=== PATIENT | female | born 1985 | race American Indian/Alaskan Native ===

== ENCOUNTER 2016-08-17 12:39 | Emergency (ER) | payer SELFPAY ==
--- NOTE | 2016-08-17 16:40 | Emergency Department Report ---
- General Chief Complaint: Skin/Abscess/Foreign Body Stated Complaint: PREV SURGERY INCISION OPENING/DRAINAGE Time Seen by Provider: 08/17/16 16:35 Source: patient Mode of arrival: Ambulatory Limitations: No Limitations - History of Present Illness Initial Comments: Patient is a 31 year old female who presents to the ED for some drainage from right sided pelvic area where had had previous . Relates that she is currently about 16 weeks as well and sees Dr. Mckay for it. Denies any other symptoms. Onset/Timin -: Sudden, days(s) Location: other (right pelvic ) Place: home Associated Symptoms: none. denies: pain, loss of feeling/numbness, suspect foreign body present, unable to move injured part - Related Data Previous Rx's Medication Instructions Recorded Last Taken Type Cephalexin [Keflex] 500 mg PO Q8HR #30 cap 08/17/16 Unknown Rx Allergies Allergy/AdvReac Type Severity Reaction Status Date / Time No Known Allergies Allergy Unverified 08/17/16 13:38 ED Review of Systems ROS: Stated complaint: PREV SURGERY INCISION OPENING/DRAINAGE Other details as noted in HPI Constitutional: denies: chills, fever Eyes: denies: eye pain, eye discharge, vision change Respiratory: denies: cough, shortness of breath, wheezing Cardiovascular: denies: chest pain, palpitations Skin: as per HPI, other (infection at the site of previous . ) Neurological: denies: headache, weakness, paresthesias Psychiatric: denies: anxiety, depression ED Past Medical Hx - Past Medical History Previous Medical History?: No - Surgical History Additional Surgical History: - Social History Smoking Status: Never Smoker Substance Use Type: None - Medications Home Medications: Home Medications Medication Instructions Recorded Confirmed Last Taken Type Cephalexin [Keflex] 500 mg PO Q8HR #30 cap 08/17/16 Unknown Rx ED Physical Exam - General Limitations: No Limitations General appearance: alert, in no apparent distress - Head Head exam: Present: atraumatic, normocephalic - Respiratory Respiratory exam: Present: normal lung sounds bilaterally. Absent: respiratory distress, wheezes, rales - Cardiovascular Cardiovascular Exam: Present: regular rate, normal rhythm. Absent: systolic murmur, diastolic murmur, rubs, gallop - Neurological Exam Neurological exam: Present: alert, oriented X3 - Psychiatric Psychiatric exam: Present: normal affect, normal mood - Skin Skin exam: Present: warm, dry, intact, normal color, other (scant drainage noted to the site of previous C-sction in the right pelvic area. No swelling, erythema or tenderness to touch). Absent: rash ED Course Vital Signs 08/17/16 13:38 Temperature 98.3 F Pulse Rate 76 Respiratory 16 Rate Blood Pressure 99/68 O2 Sat by Pulse 100 Oximetry ED Medical Decision Making - Medical Decision Making Patient is resting comfortably. Scant drainage noted at the previous C section site. Will start patient on Keflex for now. Advised follow upw tih Dr. Mckay to ensure infection resolves. Advised to return to ED for worsening symptoms. - Differential Diagnosis cellulitis, skin infection, abscess, scar infection Critical care attestation.: If time is entered above; I have spent that time in minutes in the direct care of this critically ill patient, excluding procedure time. ED Disposition Clinical Impression: Skin infection Disposition: DISCHARGED TO HOME OR SELFCARE Is pt being admited?: No Does the pt Need Aspirin: No Condition: Stable Instructions: Cellulitis (ED), Abscess (ED), Acute Wound Care (ED) Prescriptions: Cephalexin [Keflex] 500 mg PO Q8HR #30 cap Referrals: PRIMARY CARE, [Primary Care Provider] - 3-5 Days Time of Disposition: 16:45
[2016-08-17 17:00] VITALS: BP 100/61
== END 2016-08-17 16:59 | disposition home or self-care (01) ==
LOC: ED 12:39
DX: L08.89 Other specified local infections of the skin and subcutaneous tissue (principal)
CPT/HCPCS: 99282

== ENCOUNTER 2017-01-25 09:40 | Inpatient (IN) | payer OTHER ==
[2017-01-25] MEDS ORDERED: LACTATED RINGERS 1,000 ML ONE (10:25)
[2017-01-25] MEDS: LACTATED RINGERS 1,000 ML IV SCH ×2 (10:35→11:20)
[2017-01-25] MEDS ORDERED: ANCEF/STERILE WATER 2 GM/20 ML 2 GM/20 ML SYRINGE IV NR (11:00)
[2017-01-25] MEDS ORDERED: BICITRA PO NR (11:00)
[2017-01-25] MEDS ORDERED: REGLAN IV NR (11:00)
[2017-01-25] MEDS ORDERED: PEPCID IV NR (11:00)
[2017-01-25] MEDS ORDERED: PITOCin/NS 20 UNIT/1000ML DRIP 20 UNITS/1,000 ML BAG IV SCH ×2 (11:00→17:00)
[2017-01-25 11:05] LABS: Basophils % (Auto) 0.3 % (0.0-1.8); Eosinophils % (Auto) 1.9 % (0.0-4.3); Hematocrit 33.8 % (30.3-42.9); Hemoglobin 11.4 gm/dl (10.1-14.3); Mean Corpuscular HGB Conc 34 % (30-34); Mean Corpuscular Hemoglobin 32 pg (28-32); Mean Corpuscular Volume 96 fl (79-97); Platelet Count 152 K/mm3 (140-440); Red Blood Count 3.53 M/mm3 (3.65-5.03); Red Cell Distribution Width 14.1 % (13.2-15.2); White Blood Count 6.5 K/mm3 (4.5-11.0)
--- NOTE | 2017-01-25 11:32 | History and Physical Report ---
History of Present Illness Date of examination: 01/25/17 Date of admission: 01/25/17 09:40 Chief complaint: Here for third repeat History of present illness: 32-year-old 002 at 39 weeks presents for 3rd repeat , she is [facility] patient. course complicated by presentation from [place]. Her 2 prior C-sections were in [place]. Most recently seen in the emergency room (here on 07/2016) for infection at her C -section scar on the right Past History Past Medical History: no pertinent history Past Surgical History: section (# 2 (last in 2012 in [place])) [employer] History: denies: chlamydia, gonorrhea, hepatitis B, hepatitis C, herpes, HIV , syphilis, trichomonas Social history: single, full code. denies: smoking, alcohol abuse, prescription drug abuse, IV drug use - Obstetrical History Expected Date of Delivery: 02/01/17 Actual Gestation: 39 Week(s) 0 Day(s) : 3 Para: 2 Medications and Allergies Allergies Allergy/AdvReac Type Severity Reaction Status Date / Time No Known Allergies Allergy Unverified 08/17/16 13:38 Home Medications Medication Instructions Recorded Confirmed Last Taken Type Cephalexin [Keflex] 500 mg PO Q8HR #30 cap 08/17/16 Unknown Rx Active Meds: Active Medications Citric Acid/Sodium Citrate (Bicitra) 30 ml PO ONCE NR Stop: 01/25/17 18:00 Famotidine (Pepcid) 20 mg IV ONCE NR Stop: 01/25/17 18:00 Cefazolin Sodium (Ancef/Sterile Water 2 Gm/20 Ml) 2 gm in 20 mls @ 80 mls/hr IV PREOP NR PRN Reason: Protocol Stop: 01/25/17 18:00 Lactated Ringer's (Lactated Ringers) 1,000 mls @ 2,250 mls/hr IV PREOP SUSAN Stop: 01/26/17 11:27 Last Admin: 01/25/17 11:20 Dose: 2,250 mls/hr Oxytocin/Sodium Chloride (Pitocin/Ns 20 Unit/1000ml Drip) 20 units in 1,000 mls @ 0 mls/hr IV TITR SUSAN PRN Reason: As Directed Metoclopramide HCl (Reglan) 10 mg IV ONCE NR Stop: 01/25/17 18:00 Review of Systems Constitutional: no fever, no chills, no sweats, no fatigue, no weakness Cardiovascular: no chest pain, no orthopnea, no palpitations, no syncope, no lightheadedness, no shortness of breath, no dyspnea on exertion, no high blood pressure Respiratory: no cough, no excessive sputum, no shortness of breath, no dyspnea on exertion Gastrointestinal: no abdominal pain, no nausea, no vomiting Genitourinary: no vaginal bleeding, no vaginal discharge, no leakage of fluid, no pelvic pain - Vital Signs Vital signs: Vital Signs Pulse BP 86 105/73 01/25/17 10:29 01/25/17 10:29 Temp Pulse Resp BP Pulse Ox 97.6 F 90 18 107/67 01/25/17 10:42 01/25/17 11:09 01/25/17 10:42 01/25/17 11:09 - Physical Exam Cardiovascular: Regular rate, Normal S1, Normal S2 Lungs: Positive: Clear to auscultation, Normal air movement Abdomen: Positive: normal appearance, soft. Negative: distention, tenderness, guarding, rigidity Genitourinary (Female): Positive: normal external genitalia Uterus: Positive: enlarged (EFW ~ 3500). Negative: tender Extremities: Positive: normal Results Result Diagrams: 01/25/17 10:31 Abnormal lab results 01/25/17 Range/Units 10:31 RBC 3.53 L (3.65-5.03) M/mm3 Seg Neutrophils % 72.5 H (40.0-70.0) % All other labs normal. Assessment and Plan A: 32-year-old 002 at 39 weeks presents for a third repeat -Cat 1 tracing P: -Reviewed risks of surgery. She understands that her risk is increased due to her prior 2 C-sections. -She signed consent -Proceed to the OR once available - Patient Problems (1) 39 weeks gestation of Current Visit: Yes Status: Acute (2) History of 2 sections Current Visit: Yes Status: Acute
[2017-01-25] MEDS ORDERED: DILAUDID IV PRN (12:18)
[2017-01-25] MEDS ORDERED: BENADRYL IV PRN (12:18)
[2017-01-25] MEDS ORDERED: NARCAN 0.4 MG/1 ML IV PRN ×2 (12:18→16:09)
[2017-01-25] MEDS ORDERED: ZOFRAN IV PRN (12:18)
--- NOTE | 2017-01-25 12:18 | Anesthesia Day of Surgery ---
Anesthesia Day of Surgery - Day of Surgery Patient Examined: Yes Patient H&P Reviewed: Yes Patient is NPO: Yes
--- NOTE | 2017-01-25 12:18 | Anesthesia Consultation ---
Anesthesia Consult and Med Hx Date of service: 01/25/17 - Airway Anesthetic Teeth Evaluation: Good ROM Head & Neck: Adequate Mental/Hyoid Distance: Adequate Mallampati Class: Class II Intubation Access Assessment: Probably Good - Pre-Operative Health Status ASA Pre-Surgery Classification: ASA2 Proposed Anesthetic Plan: Epidural, Spinal - Pulmonary Hx Asthma: No COPD: No Hx Pneumonia: No - Cardiovascular System Hx Hypertension: No - Central Nervous System Hx Seizures: No Hx Psychiatric Problems: No - Endocrine Hx Renal Disease: No Hx End Stage Renal Disease: No Hx Hypothyroidism: No Hx Hyperthyroidism: No - Hematic Hx Anemia: Yes Hx Sickle Cell Disease: No - Other Systems Hx Alcohol Use: No
[2017-01-25] MEDS ORDERED: SODIUM CHLORIDE FLUSH SYRINGE 10 ML IV NR ×2 (13:00→17:00)
[2017-01-25] MEDS ORDERED: MORPHINE ONE (14:15)
[2017-01-25] MEDS ORDERED: NACL 0.9% 1000 ML 1,000 ML ONE (14:43)
[2017-01-25] MEDS ORDERED: XYLOCAINE MPF 2% ONE ×4 (15:00)
[2017-01-25] MEDS ORDERED: NEO SYNEPHRINE/NS Syringe(OR USE) IV ONE (15:00)
[2017-01-25] MEDS ORDERED: NACL 0.9% IR ONE (15:16)
[2017-01-25] MEDS ORDERED: WATER FOR IRRIG STERILE IR ONE (15:16)
[2017-01-25] MEDS ORDERED: SENOKOT PO PRN (16:09)
[2017-01-25] MEDS ORDERED: MYLICON PO PRN (16:09)
[2017-01-25] MEDS ORDERED: TUCKS PAD TP PRN (16:09)
[2017-01-25] MEDS ORDERED: MILK OF MAGNESIA PO PRN (16:09)
[2017-01-25] MEDS ORDERED: ANUCORT-HC PR PRN (16:09)
[2017-01-25] MEDS ORDERED: LANSINOH TP PRN (16:09)
--- NOTE | 2017-01-25 16:09 | Operative Report ---
Operative Report Operative Report: DATE: 01/25/2017 PREOPERATIVE DIAGNOSIS: 32-year-old 002 at 39 weeks, 2 prior C-sections in [place], desires repeat , abscess at right lower abdomen by incision POSTOP DIAGNOSIS: As above plus incisional wound abscess NAME OF PROCEDURE: 3rd Repeat low transverse section, excision and debridement of wound abscess, adhesiolysis SURGEON: ALCON MCCLURE MD DRIP PUMPER: [] ANESTHESIA: Combined spinal epidural EBL: 800 mL PATHOLOGY SPECIMEN: Excised tissue from wound abscess URINE OUTPUT: 125 mL BRIEF NOTE: Patient with 2 prior C-sections in [place] here for 3rd repeat. Patient with obvious wound abscess on the right lower edge of her prior incision. Review of chart shows she presented to the emergency room here in July of this year with complaint of drainage and infection at the site. She was diagnosed with cellulitis and started on antibiotics; it appears this was no benefit. On inspection here, it was obvious this was likely due to suture. Used in [place]. On incision, it was confirmed that this was a permanent suture most likely silk. Excision and then debridement of wound edges was performed. FINDINGS: Female in cephalic presentation, time of was 15:02, Apgars were 8 and 9, infant weight was 7 lbs. 13 oz. or 3533 g, normal uterus tubes and ovaries bilaterally, moderate adhesions internally, very thin fascia tissue noted, obvious wound abscess as noted above with permanent blue colored silk like suture noted. Note patient's last was in 2012. DESCRIPTION OF PROCEDURE: She was taken to the operating room where she was prepped and draped in a sterile fashion, she was placed in the dorsal supine position. Pfannenstiel incision was performed through her prior incisional scar which was carried through to underlying rectus fascia which was scored in the midline. Fascial tissue was difficult to recognize as it was very thin and almost nonexistent. The fascial incision was extended laterally with use of Carlin scissors, the anterior leaf was then grasped with Kochers forceps elevated dissected sharply and bluntly off the underlying rectus, inferior leaf could not be dissected off the underlying rectus as it was very thin and appeared to be completely adhesed. The rectus was in the midline, good visualization of bladder was noted. A bladder blade was placed in the patient' s pelvic cavity; bladder flap could not be created. A hysterotomy incision was then performed in the lower segment with clear amniotic fluid noted, hysterotomy incision was extended laterally with the use of fingers manually. in cephalic presentation was delivered in the usual manner; cord was clamped and cut infant was handed over to waiting nursery staff. The placenta was then delivered manually intact, the uterus was exteriorized cleared of all clots and debris. Hysterotomy incision was then closed in a running locked fashion with 0 Vicryl on a CTX; using the same suture was imbricate the initial layer. Interrupted [id number] stitches were used to obtain hemostasis. Uterus was then returned to the patient's pelvic cavity; peritoneal edges were grasped with hemostats and Geri's elevated copious irrigation was used to clear the gutters of all clots and debris. Tercel hemostatic agent was then applied to the hysterotomy incision as a means to prevent future bleeding. The peritoneal layer was then closed in a running fashion with 3-0 Vicryl and the rectus was reapproximated with a single [id number] stitch. The fascia was closed in a running fashion with 0 Vicryl and tied in the opposite side. The subcutaneous layer was irrigated and then reapproximated with interrupted figure -of-eight stitches. We then turned our attention to the abscess which was grasped with Allis forceps forceps elevated. This tissue was dissected down until the suture knot was found and this was excised out. The surrounding skin and tissue off the abscess was also excised and sent to pathology. The skin was then closed in a subcuticular manner with 4-0 Vicryl. She tolerated the procedure well lap and instrument counts were correct 2 she did receive 2 g of Ancef prior to incision she is transferred to PACU in stable condition thank you.
[2017-01-25] MEDS: TORADOL IV PRN (17:00)
[2017-01-25] MEDS ORDERED: ANCEF/NS 1 GM/50 ML 1 GM/50 ML BAG IV SCH (17:00)
--- NOTE | 2017-01-25 18:28 | Post Anesthesia Evaluation ---
- Post Anesthesia Evaluation Patient Participated: Yes Airway Patent: Yes Stable Respiratory Function: Yes Nausea/Vomiting: No Temp > 96.8F: Yes Pain Manageable: Yes Adequeate Hydration: Yes Anesthesia Complications: No Block Receding Appropriately: Not Applicable Patient on Ventilator: No
[2017-01-26] MEDS: D5LR 1,000 ML IV SCH ×2 (00:23→19:20)
[2017-01-26 05:40] LABS: Hemoglobin 9.8 gm/dl (10.1-14.3)
[2017-01-26] MEDS: TORADOL IV PRN (05:45)
[2017-01-26] MEDS ORDERED: BOOSTRIX IM ONE (06:00)
[2017-01-26] MEDS ORDERED: M-M-R II VACCINE SUB-Q ONE (06:00)
[2017-01-26] MEDS ORDERED: AMMONIA INHALANT IH ONE ×2 (07:18→15:31)
[2017-01-26] MEDS ORDERED: ANCEF/NS 1 GM/50 ML 1 GM/50 ML BAG IV ONE (08:24)
--- NOTE | 2017-01-26 08:45 | Progress Note ---
Assessment and Plan POD# 1 s/p 3rd repeat LTCS -Doing well P: -Continue routine postop care -Anticipate discharge in 24-48 hours - Patient Problems (1) Status post repeat low transverse section Current Visit: Yes Status: Acute (2) 39 weeks gestation of Current Visit: Yes Status: Acute (3) History of 2 sections Current Visit: Yes Status: Acute Subjective - Subjective Date of service: 01/26/17 Principal diagnosis: POD# 1 Interval history: Patient seen and examined, stable doing well no issues Patient reports: appetite normal, voiding normally, pain well controlled, flatus , ambulating normally, no dizzy ambulation, no nauseated [place]: doing well Objective - Vital Signs Latest vital signs: Vital Signs Temp Pulse Resp BP Pulse Ox 01/26/17 05:45 20 01/26/17 04:10 98.1 F 73 18 102/72 01/26/17 00:00 98.7 F 72 18 100/64 01/25/17 20:06 97.5 F L 70 18 107/68 01/25/17 17:35 98.7 F 65 20 110/72 01/25/17 17:17 98.6 F 72 14 108/77 100 01/25/17 17:00 66 14 108/77 100 01/25/17 16:45 66 14 103/72 100 01/25/17 16:30 98 F 64 14 107/66 100 01/25/17 16:15 64 12 93/56 100 01/25/17 16:10 66 12 100/66 100 01/25/17 16:05 97.9 F 74 12 97/64 100 01/25/17 14:18 98 F 01/25/17 12:51 88 104/66 01/25/17 12:33 88 103/62 01/25/17 12:09 84 103/63 01/25/17 11:49 80 105/64 01/25/17 11:30 86 113/68 01/25/17 11:29 81 113/61 01/25/17 11:09 90 107/67 01/25/17 10:49 85 106/73 01/25/17 10:42 97.6 F 85 18 106/73 01/25/17 10:29 86 105/73 Intake and Output 01/25/17 01/26/17 01/26/17 22:59 06:59 14:59 Intake Total 2100 720 Output Total 175 500 600 Balance 1925 220 -600 Intake: IV 2100 Intake, Free Water 720 Output: Urine 175 500 600 Indwelling Catheter 500 600 Other: Total, Output Amount 500 600 Estimated Blood Loss 800 - Exam Abdomen: Present: normal appearance, soft. Absent: distention, tenderness, guarding, rigidity Uterus: Present: fundal height below umbilicus. Absent: tenderness Extremities: Present: normal Incision: Present: dry, intact - Labs Labs: Abnormal lab results 01/25/17 01/26/17 Range/Units 10:31 05:04 RBC 3.53 L (3.65-5.03) M/mm3 Hgb 9.8 L (10.1-14.3) gm/dl Hct 29.0 L (30.3-42.9) % Seg Neutrophils % 72.5 H (40.0-70.0) %
--- NOTE | 2017-01-26 09:14 | Progress Note ---
Subjective Date of service: 01/26/17 Principal diagnosis: POD# 1 Interval history: Epidural has been removed and the patient is doing well. Objective - Constitutional Vitals: Vital Signs - 12hr 01/26/17 01/26/17 01/26/17 00:00 04:10 05:45 Temperature 98.7 F 98.1 F Pulse Rate 72 73 Respiratory 18 18 20 Rate Blood Pressure 100/64 102/72 - Labs CBC & Chem 7: 01/26/17 05:04 Labs: Abnormal lab results 01/25/17 01/26/17 Range/Units 10:31 05:04 RBC 3.53 L (3.65-5.03) M/mm3 Hgb 9.8 L (10.1-14.3) gm/dl Hct 29.0 L (30.3-42.9) % Seg Neutrophils % 72.5 H (40.0-70.0) %
[2017-01-26] MEDS: FEOSOL PO SCH (16:45)
[2017-01-26] MEDS: PERCOCET 5/325 PO PRN ×2 (16:45→23:48)
[2017-01-26] MEDS: PRENATAL VITAMIN PO SCH (16:45)
[2017-01-27] MEDS ORDERED: BOOSTRIX IM ONE (06:00)
[2017-01-27] MEDS: PERCOCET 5/325 PO PRN (09:12)
[2017-01-27] MEDS: MOTRIN PO PRN ×2 (09:13→18:33)
--- NOTE | 2017-01-27 10:22 | Progress Note ---
Assessment and Plan POD# 2 s/p 3rd repeat LTCS -Doing well P: -Continue routine postop care -Anticipate discharge in 24-48 hours - Patient Problems (1) Status post repeat low transverse section Current Visit: Yes Status: Acute (2) 39 weeks gestation of Current Visit: Yes Status: Acute (3) History of 2 sections Current Visit: Yes Status: Acute Subjective - Subjective Date of service: 01/27/17 Principal diagnosis: POD# 2 Interval history: Patient seen and examined, stable doing well no issues Patient reports: appetite normal, voiding normally, pain well controlled, flatus , ambulating normally, no dizzy ambulation, no nauseated [place]: doing well Objective - Vital Signs Latest vital signs: Vital Signs Temp Pulse Resp BP 01/27/17 08:45 98.1 F 85 18 113/67 01/27/17 01:00 98.9 F 79 18 99/62 01/26/17 23:48 20 01/26/17 16:20 98.1 F 88 18 111/70 01/26/17 12:50 98.8 F 80 18 101/65 Intake and Output 01/26/17 01/27/17 01/27/17 22:59 06:59 14:59 Intake Total 120 360 240 Output Total 450 800 Balance -330 -440 240 Intake: Oral 120 240 Intake, Free Water 360 Output: Urine 450 800 Indwelling Catheter 450 Void 800 Other: Total, Intake Amount 120 240 Total, Output Amount 450 400 # Voids Void 1 - Exam Abdomen: Present: normal appearance, soft. Absent: distention, tenderness, guarding, rigidity Uterus: Present: fundal height below umbilicus. Absent: tenderness Extremities: Present: normal. Absent: tenderness Incision: Present: dry, intact
--- NOTE | 2017-01-27 10:24 | Discharge Summary ---
Providers - Providers Date of Admission: 01/25/17 09:40 Date of discharge: 01/28/17 Attending physician: ALCON MCCLURE Primary care physician: ALCON MCCLURE Hospitalization Reason for admission: section Delivery: Procedure: repeat low transverse (3rd repeat) Incision: dry, intact Other procedures: none complications: none Discharge diagnosis: IUP at term delivered [place] baby: female Hospital course: Uncomplicated hospital course Condition at discharge: Good Disposition: DC-01 TO HOME OR SELFCARE - Discharge Diagnoses (1) Status post repeat low transverse section Status: Acute (2) 39 weeks gestation of Status: Acute (3) History of 2 sections Status: Acute Plan - Discharge Medications Prescriptions: Ibuprofen [Motrin 600 MG tab] 600 mg PO Q8H PRN #30 tablet PRN Reason: Pain Multivitamin with Iron [Multivitamins with Iron] 1 each PO DAILY #30 tablet oxyCODONE /ACETAMINOPHEN [Percocet 5/325] 1 tab PO Q6HR PRN #30 tablet PRN Reason: Pain - Provider Discharge Summary Activity: no sex for 6 weeks, no heavy lifting 4 weeks, no strenuous exercise Diet: routine Additional instructions: [] Smoking cessation referral if applicable(refer to patient education folder for contact #) [] Refer to [facility]'s [facility] Booklet Call your doctor immediately for: * Fever > 100.5 * Heavy vaginal bleeding ( >1 pad per hour) * Severe persistent headache * Shortness of breath * Reddened, hot, painful area to leg or breast * Drainage or odor from incision. * Keep incision clean and dry at all times and follow doctor's instructions regarding bathing/showering - Follow up plan Follow up: ALCON MCCLURE MD [Primary Care Provider] - 14 Days
[2017-01-27] MEDS: PRENATAL VITAMIN PO SCH (11:23)
[2017-01-27] MEDS: FEOSOL PO SCH (11:23)
[2017-01-28] MEDS: PERCOCET 5/325 PO PRN ×3 (00:04→18:04)
[2017-01-28] MEDS: MOTRIN PO PRN ×2 (06:35→12:54)
[2017-01-28] MEDS: PRENATAL VITAMIN PO SCH (10:24)
[2017-01-28] MEDS: FEOSOL PO SCH (10:24)
[2017-01-28 20:25] VITALS: BP 93/64
== END 2017-01-28 21:02 | disposition home or self-care (01) | DRG 766 ==
LOC: APU 09:40 → OB 18:33
PROVIDERS: ADMIT Obstetrics & Gynecology Gynecology; ATTEND Obstetrics & Gynecology Gynecology
PROC: 10D00Z1 Extraction of Products of Conception, Low, Open Approach (ICD-10-PCS; principal; 2017-01-25)
DX: O34.211 Maternal care for low transverse scar from previous cesarean delivery (principal); Z3A.39 39 weeks gestation of pregnancy; Z37.0 Single live birth
CPT/HCPCS: 36415; 85014; 85018; 85025; 86592; 86850; 86900; 86901; 88304; 88305; 90471; 90715; 99211; C9250; G0463; J0690; J1885; J2270; J2370; J2590; J2765; J7030; J7120; J7121